=== PATIENT | female | born 1990 | race Caucasian/White ===

== ENCOUNTER 2022-12-14 09:13 | Emergency (ER) | payer SELFPAY ==
[2022-12-14 11:15] LABS: CORONAVIRUS COVID-19 NAA NEGATIVE (NEGATIVE); INFLUENZA A NAA NEGATIVE (NEGATIVE); RESPIRATORY SYNCYTIAL VIR NAA NEGATIVE (NEGATIVE)
== END 2022-12-14 12:11 | disposition home or self-care (01) ==
LOC: JD.ED 09:13
DX: O99.511 Diseases of the respiratory system complicating pregnancy, first trimester (principal); J02.9 Acute pharyngitis, unspecified; B97.89 Other viral agents as the cause of diseases classified elsewhere; Z87.891 Personal history of nicotine dependence; Z3A.09 9 weeks gestation of pregnancy
CPT/HCPCS: 0241U; 87651; 99283